=== PATIENT | female | born 1960 | race Asian ===

== ENCOUNTER 2022-02-03 15:06 | Emergency (ER) | payer OTHER ==
[~2022-02-03] VITALS: Ht 162.6 cm; Wt 76.0 kg
[2022-02-03] MEDS ORDERED: [UNRECOGNIZED DRUG - CODE] MT (18:49)
[2022-02-03] MEDS ORDERED: FLUT9.9S16 BOTHNSTRLS (18:49)
[2022-02-03 18:58] VITALS: BP 128/86
== END 2022-02-03 19:00 | disposition home or self-care (01) ==
LOC: ER 15:06
DX: J22 Unspecified acute lower respiratory infection (principal); K02.9 Dental caries, unspecified; J32.9 Chronic sinusitis, unspecified; E11.9 Type 2 diabetes mellitus without complications; M10.9 Gout, unspecified; J45.909 Unspecified asthma, uncomplicated
CPT/HCPCS: 99281